=== PATIENT | male | born 1990 ===

== ENCOUNTER 2021-10-21 22:57 | Emergency (ER) | payer SELFPAY ==
[2021-10-22 01:35] LABS: Absolute Lymphocytes (CBC) 1.6 K/uL (0.7-4.9); Hematocrit 41.9 % (39.6-49.0); Lymphocytes % 19.1 % (15.3-44.8); MPV 8.1 fL (7.6-11.3); RBC Red Blood Cell Count 4.42 M/uL (4.33-5.43)
[2021-10-22 01:40] LABS: Protime INR 1.14
[2021-10-22 02:00] LABS: Bilirubin Direct 0.2 mg/dL (0-0.2); Bilirubin Total 0.6 mg/dL (0.2-1.0); Magnesium 2.2 mg/dL (1.8-2.4); Potassium 3.6 mmol/L (3.5-5.1); Protein, Total 7.2 g/dL (6.4-8.2); Troponin High Sensitivity 5.7 pg/mL (<58.9)
[2021-10-22] MEDS ORDERED: NA CHLORIDE 0.9% 1,000 ML ONE (03:21)
--- NOTE | 2021-10-22 06:13 | EDPHYS ---
Physician Documentation [facility] Name: Emir Fernandez Age: 31 yrs Sex: Male : 1990 Arrival Date: 10/21/2021 Time: 23:03 Bed 3 Private MD: ED Physician Ashkan Ulloa HPI: 10/22 01:15 This 31 yrs old Male presents to ER via Ambulatory with complaints of Cough, Vomiting, mh7 - Blood, Back Pain, Chest Pain, Abdominal Pain. 01:15 The patient presents to the emergency department with nausea, that is moderate, mh7 vomiting, that is intermittent, described as blood streaked, clear fluid, One episode with blood , abdominal pain, of the epigastric area, described as intermittent, vague,\\E\\ waxing and waning, and does not radiate. Onset: The symptoms/episode began/occurred 1 week(s) ago. Possible causes: unknown. The symptoms are aggravated by nothing. The symptoms are alleviated by nothing. Associated signs and symptoms: Pertinent positives: cough, chest pain, Pertinent negatives: anorexia, belching, constipation, diarrhea, dysuria, fever, flatulence, hematuria. Severity of symptoms: At their worst the symptoms were moderate yesterday, in the emergency department the symptoms have improved moderately. Historical: - Allergies: 10/21 23:39 PENICILLINS; jb4 - Home Meds: 23:39 None [Active]; jb4 - PMHx: 23:39 adhd; jb4 - PSHx: 23:39 None; jb4 - Immunization history:: Adult Immunizations not up to date. - Social history:: Smoking status: Patient denies any tobacco usage or history of. ROS: 10/22 01:15 Constitutional: Negative for fever, chills, and weight loss, Eyes: Negative for injury, mh7 pain, redness, and discharge, ENT: Negative for injury, pain, and discharge, Neck: Negative for injury, pain, and swelling, Back: Negative for injury and pain, : Negative for injury, bleeding, discharge, and swelling, MS/Extremity: Negative for injury and deformity, Skin: Negative for injury, rash, and discoloration, Neuro: Negative for headache, weakness, numbness, tingling, and seizure, Psych: Negative for depression, anxiety, suicide ideation, homicidal ideation, and hallucinations, Allergy/Immunology: Negative for hives, rash, and allergies, Endocrine: Negative for neck swelling, polydipsia, polyuria, polyphagia, and marked weight changes, Hematologic/Lymphatic: Negative for swollen nodes, abnormal bleeding, and unusual bruising. Exam: 01:15 Constitutional: This is a well developed, well nourished patient who is awake, alert, mh7 and in no acute distress. Head/Face: Normocephalic, atraumatic. Eyes: Pupils equal round and reactive to light, extra-ocular motions intact. Lids and lashes normal. Conjunctiva and sclera are non-icteric and not injected. Cornea within normal limits. Periorbital areas with no swelling, redness, or edema. Neck: Trachea midline, no thyromegaly or masses palpated, and no cervical lymphadenopathy. Supple, full range of motion without nuchal rigidity, or vertebral point tenderness. No Meningismus. Chest/axilla: Normal chest wall appearance and motion. Nontender with no deformity. No lesions are appreciated. Cardiovascular: Regular rate and rhythm with a normal S1 and S2. No gallops, murmurs, or rubs. Normal PMI, no JVD. No pulse deficits. Respiratory: Lungs have equal breath sounds bilaterally, clear to auscultation and percussion. No rales, rhonchi or wheezes noted. No increased work of breathing, no retractions or nasal flaring. Back: No spinal tenderness. No costovertebral tenderness. Full range of motion. Skin: Warm, dry with normal turgor. Normal color with no rashes, no lesions, and no evidence of cellulitis. MS/ Extremity: Pulses equal, no cyanosis. Neurovascular intact. Full, normal range of motion. Neuro: Awake and alert, GCS 15, oriented to person, place, time, and situation. Cranial nerves II-XII grossly intact. Motor strength 5/5 in all extremities. Sensory grossly intact. Cerebellar exam normal. Normal gait. Psych: Awake, alert, with orientation to person, place and time. Behavior, mood, and affect are within normal limits. 01:15 Abdomen/GI: Inspection: abdomen appears normal, Bowel sounds: normal, in all quadrants, Palpation: moderate abdominal tenderness, in the epigastric area, mass, is not appreciated, rebound tenderness, is not appreciated, voluntary guarding, is not appreciated, involuntary guarding, is not appreciated, no appreciated organomegaly, Rectal exam: the exam is deferred, because of patient request, Indicators: McBurney's point is not tender, Ramos's sign is negative, Rovsing's sign is negative, Obturator sign is negative, Psoas sign is negative, Liver: no appreciated palpable abnormalities, Hernia: not appreciated. Vital Signs: 10/21 23:37 BP 130 / 80; Pulse 70; Resp 16; Temp 98.0(TE); Pulse Ox 95% on R/A; Weight 72.12 kg jb4 (R); Height 5 ft. 9 in. (175.26 cm) (R); 10/22 03:10 BP 108 / 68; Pulse 63; Resp 16; Pulse Ox 97% on R/A; sm5 05:17 BP 113 / 67; Pulse 64; Resp 15; Pulse Ox 100% ; 5 06:27 BP 109 / 69; Pulse 56; Resp 17; Pulse Ox 97% on R/A; 5 10/21 23:37 Body Mass Index 23.48 (72.12 kg, 175.26 cm) jb4 MDM: 06:09 Differential diagnosis: Nonspecific abd pain, gastritis, cholecystitis, pancreatitis, mh7 viral gastroenteritis. Data reviewed: vital signs, nurses notes, lab test result(s), amylase and lipase, CBC, electrolytes, urinalysis, radiologic studies, CT scan. Data interpreted: Pulse oximetry: on room air is 100 %. Interpretation: normal. Counseling: I had a detailed discussion with the patient and/or guardian regarding: the historical points, exam findings, and any diagnostic results supporting the discharge/admit diagnosis, lab results, radiology results, the need for outpatient follow up, a tank charger, to return to the emergency department if symptoms worsen or persist or if there are any questions or concerns that arise at home. Response to treatment: the patient's symptoms have resolved after treatment, the patient's blood pressure is in an acceptable range, mental status has returned to baseline, the patient no longer shows bradycardia, the patient is not short of breath, the patient is not tachycardic, the patient's pain is gone, the patient's temperature has normalized, the patient is now symptom free, patient is well hydrated. 06:12 Patient medically screened. [facility] 10/22 01:00 Order name: Basic Metabolic Panel; Complete Time: 03:01 [facility] 10/22 01:00 Order name: CBC with Diff; Complete Time: 03:01 [facility] 10/22 01:00 Order name: LFT's; Complete Time: 03:01 [facility] 10/22 01:00 Order name: Magnesium; Complete Time: 03:01 [facility] 10/22 01:00 Order name: NT PRO-BNP; Complete Time: 03:01 [facility] 10/22 01:00 Order name: PT-INR; Complete Time: 03:01 [facility] 10/22 01:00 Order name: Troponin HS; Complete Time: 03:01 [facility] 10/22 01:00 Order name: XRAY Chest (1 view) [facility] 10/22 01:00 Order name: Lipase; Complete Time: 03:01 [facility] 10/22 01:02 Order name: COVID-19 SARS RT PCR (Document "Date of Onset" if Symptomatic); Complete [facility] Time: 03:10/22 03:03 Order name: CT Abd/Pelvis - IV Contrast Only [facility] 10/22 01:00 Order name: EKG; Complete Time: 01:00 [facility] 10/22 01:00 Order name: Cardiac monitoring; Complete Time: 02:52 [facility] 10/22 01:00 Order name: EKG - Nurse/Tech; Complete Time: 02:52 [facility] 10/22 01:00 Order name: IV Saline Lock; Complete Time: 01:25 [facility] 10/22 01:00 Order name: Labs collected and sent; Complete Time: 01:25 [facility] 10/22 01:00 Order name: O2 Per Protocol; Complete Time: 01:30 [facility] 10/22 01:00 Order name: O2 Sat Monitoring; Complete Time: 01:30 [facility] Administered Medications: 03:17 Not Given (Patient Refused): ProTONIX (pantoprazole) 40 mg IVP once sm5 03:17 Not Given (Patient Refused): Phenergan (promethazine) 12.5 mg IVP once sm5 03:20 Drug: NS 0.9% 1000 ml Route: IV; Rate: 1000 ml; Site: right antecubital; sm5 06:28 Follow up: IV Status: Completed infusion; IV Intake: 1000ml sm5 Disposition Summary: 10/22/21 06:12 Discharge Ordered Location: Home [facility] Problem: new [facility] Symptoms: have improved mh Condition: Stable [facility] Diagnosis - Upper abdominal pain, unspecified 7 - Nausea with vomiting, unspecified mh7 Followup: [facility] - With: Private Physician - When: 1 - 2 days - Reason: Worsening of condition, Recheck today's complaints, Continuance of care, Re-evaluation by your physician Followup: [facility] - With: Vahid Chaudhari MD - When: 1 - 2 days - Reason: Worsening of condition, Recheck today's complaints Discharge Instructions: - Discharge Summary Sheet [facility] - Nausea and Vomiting, Adult 7 - Abdominal Pain, Adult, [id number] [facility] Forms: - Medication Reconciliation Form [facility] - Thank You Letter [facility] - Antibiotic Education [facility] - Prescription Opioid Use [facility] - Work release form sm5 Prescriptions: - ondansetron 4 mg Oral tablet,disintegrating - place 1 tablet by TRANSLINGUAL route every 8 hours As needed; 10 tablet; 7 Refills: 0, Product Selection Permitted - Protonix 40 mg Oral tablet,delayed release (DR/EC) - take 1 tablet by ORAL route once daily; 15 tablet; Refills: 0, Product [facility] Selection Permitted - dicyclomine 20 mg Oral Tablet - take 1 tablet by ORAL route 4 times per day As needed; 20 tablet; Refills: 0, [facility] Product Selection Permitted Signatures: Dispatcher [employer] Jalen Agee, RN RN jb4 Ashkan Ulloa MD MD mh7 Iesha Rodriguez RN RN sm5
--- NOTE | 2021-10-22 06:13 | ER ---
Nurse's Notes [facility] Name: Emir Fernandez Age: 31 yrs Sex: Male : 1990 Arrival Date: 10/21/2021 Time: 23:03 Bed 3 Private MD: Diagnosis: Upper abdominal pain, unspecified;Nausea with vomiting, unspecified Presentation: 10/21 23:37 Chief complaint: Patient states: I was at work and I vomited and blood came out. I jb4 started having chest pain and back pain right after. I have been sick for the past 3 days, I did a home covid test and it was negative. Coronavirus screen: Client presents with at least one sign or symptom that may indicate coronavirus-19. Provider contacted for isolation considerations. The client reports previous COVID testing was negative. Ebola Screen: No symptoms or risks identified at this time. Initial Sepsis Screen: Does the patient meet any 2 criteria? No. Patient's initial sepsis screen is negative. Does the patient have a suspected source of infection? No. Patient's initial sepsis screen is negative. Risk Assessment: Do you want to hurt yourself or someone else? Patient reports no desire to harm self or others. Onset of symptoms was October 18, 2021. Transition of care: patient was not received from another setting of care. 23:37 Method Of Arrival: Ambulatory [facility] 23:37 Acuity: AMA 3 jb4 Triage Assessment: 10/22 01:00 GI: Reports vomiting. sm5 01:00 General: Appears in no apparent distress. Behavior is cooperative. sm5 Historical: - Allergies: 10/21 23:39 PENICILLINS; jb4 - Home Meds: 23:39 None [Active]; jb4 - PMHx: 23:39 adhd; jb4 - PSHx: 23:39 None; jb4 - Immunization history:: Adult Immunizations not up to date. - Social history:: Smoking status: Patient denies any tobacco usage or history of. Screenin/12 03:10 Abuse screen: Denies threats or abuse. Denies injuries from another. Nutritional sm5 screening: No deficits noted. Tuberculosis screening: No symptoms or risk factors identified. Fall Risk None identified. Assessment: 02:45 General: Appears in no apparent distress. Behavior is cooperative. Pain: Denies pain. sm5 Neuro: Daniels Agitation-Sedation Scale (RASS): 0 - Alert and Calm Level of Consciousness is awake, alert, obeys commands, Oriented to person, place, time, situation. Cardiovascular: No deficits noted. Capillary refill < 3 seconds Patient's skin is warm and dry. Respiratory: No deficits noted. Airway is patent Trachea midline Respiratory effort is even, unlabored. GI: Abdomen is flat, non-distended. 03:50 Reassessment: No changes from previously documented assessment. Patient and/or family [facility] updated on plan of care and expected duration. Pain level reassessed. 04:55 Reassessment: No changes from previously documented assessment. Patient is alert, 5 oriented x 3, equal unlabored respirations, skin warm/dry/pink. 06:27 Reassessment: No changes from previously documented assessment. 5 Vital Signs: 10/21 23:37 BP 130 / 80; Pulse 70; Resp 16; Temp 98.0(TE); Pulse Ox 95% on R/A; Weight 72.12 kg jb4 (R); Height 5 ft. 9 in. (175.26 cm) (R); 10/22 03:10 BP 108 / 68; Pulse 63; Resp 16; Pulse Ox 97% on R/A; sm5 05:17 BP 113 / 67; Pulse 64; Resp 15; Pulse Ox 100% ; sm5 06:27 BP 109 / 69; Pulse 56; Resp 17; Pulse Ox 97% on R/A; sm5 11 23:37 Body Mass Index 23.48 (72.12 kg, 175.26 cm) jb4 ED Course: 10/21 23:03 Patient arrived in ED. bp1 23:39 Triage completed. jb4 23:39 Arm band placed on right wrist. jb4 23:56 Iesha Rodriguez, ELIDA is Primary Nurse. sm5 23:58 Ashkan Ulloa MD is Attending Physician. [facility] 10/22 01:25 Inserted saline lock: 22 gauge in right antecubital area, using aseptic technique. ll3 Blood collected. 01:40 XRAY Chest (1 view) In Process Unspecified. EDMS 03:10 Patient has correct armband on for positive identification. Bed in low position. Call [facility] light in reach. Side rails up X2. 04:00 CT Abd/Pelvis - IV Contrast Only In Process Unspecified. EDMS 05:19 No provider procedures requiring assistance completed. sm5 06:11 Vahid Chaudhari MD is Referral Physician. [facility] 06:27 IV discontinued, intact, bleeding controlled, No redness/swelling at site. Pressure sm5 dressing applied. Administered Medications: 03:17 Not Given (Patient Refused): ProTONIX (pantoprazole) 40 mg IVP once sm5 03:17 Not Given (Patient Refused): Phenergan (promethazine) 12.5 mg IVP once sm5 03:20 Drug: NS 0.9% 1000 ml Route: IV; Rate: 1000 ml; Site: right antecubital; sm5 06:28 Follow up: IV Status: Completed infusion; IV Intake: 1000ml 5 Medication: 05:19 VIS not applicable for this client. sm5 Intake: 06:28 IV: 1000ml; Total: 1000ml. sm5 Outcome: 06:12 Discharge ordered by . [facility] 06:27 Discharged to home ambulatory. 5 06:27 Condition: stable 06:27 Discharge instructions given to patient, Instructed on discharge instructions, follow up and referral plans. medication usage, Demonstrated understanding of instructions, follow-up care, medications, Prescriptions given X 3. 06:28 Patient left the ED. 5 Signatures: Dispatcher [employer] EDMS Jalen Prabhakar, RN RN jb4 Sasha Borrego Maurice, MD MD 7 Clarence Matthews RN RN ll3 Iesha Rodriguez RN RN sm5
[2021-10-22 06:48] VITALS: TEMP 98
[2021-10-22 06:53] VITALS: BP 109/69; O2SAT 97
--- NOTE | 2021-10-23 13:19 | RAD REPORT ---
EXAM DESCRIPTION: CT - Abdomen Pelvis W Contrast - 10/22/2021 6:32 am CLINICAL HISTORY: The patient is 31 years years old, Male; Abdominal pain, acute, nonlocalized TECHNIQUE: Axial computed tomography images of the abdomen with intravenous contrast. Sagittal and coronal reformatted images were created and reviewed. This CT exam was performed using one or more of the following dose reduction techniques: automated exposure control, adjustment of the mA and/o r kV according to patient size, and/or use of iterative reconstruction technique. COMPARISON: No relevant prior studies available. FINDINGS: LUNG BASES: The visualized lung bases show no evidence of mass, pulmonary nodules or gr oss consolidation. PLEURAL SPACE: There is no evidence of pleural effusions or pneumothoraces. ABDOMEN: LIVER: Unremarkable. The liver is normal in size and configuration. There are no significant foc al defects. There is no evidence of biliary ductal dilatation. GALLBLADDER AND BILE DUCTS: Unremarkable. There is no evidence of calculi or pericholecystic infla mmatory changes. There is no biliary ductal dilatation. PANCREAS: Unremarkable. No ductal dilatation, inflammatory changes or mass. SPLEEN: Unremarkable. No splenomegaly or focal defects. ADRENALS: Unremarkable. No mass or calcification. KIDNEYS AND URETERS: There are no acute findings in the kidneys. There is no evidence of solid mas s, hydronephrosis or radiopaque nonobstructive intrarenal calculi. There is focal cortical scarring i n the upper pole of the left kidney STOMACH AND BOWEL: The stomach, small bowel, colon and rectum are unremarkable, allowing for areas of peristalsis, i.e decompression. No evidence of intestinal obstruction or acute inflammatory ruth nges. PELVIS: APPENDIX: The appendix is present and appears normal. BLADDER: Unremarkable, allowing for the degree of distention. There is no evidence of cystolithias is or bladder mass. REPRODUCTIVE: The prostate and seminal vesicles are unremarkable. ABDOMEN and PELVIS: INTRAPERITONEAL SPACE: There is no evidence of free air or free fluid. BONES/JOINTS: There is no evidence of acute fracture, osseous destruction or osteoblastic changes. SOFT TISSUES: There is a small fat-containing right inguinal hernia. VASCULATURE: Unremarkable. No abdominal aortic aneurysm. LYMPH NODES: Unremarkable. There is no evidence of mesenteric, retroperitoneal, pelvic or ingui nal adenopathy. IMPRESSION: No acute findings in the abdomen or pelvis. Electronically signed by: Lita Flores MD 10/22/2021 6:01 AM CDT Due to temporary technical issues with the PACS/Fluency reporting system, reports are being signed by the in house radiologist without review as a courtesy to ensure prompt reporting. The interpreting r adiologist is fully responsible for the content of the report.
--- NOTE | 2021-10-23 13:21 | RAD REPORT ---
EXAM DESCRIPTION: RAD - Chest Single View - 10/22/2021 1:38 am CLINICAL HISTORY: 31 years, Male, COUGH COMPARISON: None. FINDINGS: Single view of the chest was obtained portable. No prior films are available for compariso n. The cardiomediastinal silhouette demonstrate to be unremarkable. The heart is not enlarged. The thoracic aorta is unremarkable. The pulmonary vasculature is normal distribution. Costophrenic angles are sharp. No areas of consolidation or masses are seen. The rest of the soft tissue and bony st ructures demonstrate to be unremarkable. IMPRESSION: No acute cardiopulmonary process identified. Electronically signed by: Kun Gage MD 10/22/2021 1:44 AM CDT Due to temporary technical issues with the PACS/Fluency reporting system, reports are being signed by the in house radiologist without review as a courtesy to ensure prompt reporting. The interpreting r adiologist is fully responsible for the content of the report.
--- NOTE | 2021-10-23 13:36 | EKG ---
Test Date: 2021-10-22 Test Time: 02:40:56 Delivery Professional: PERRY MEASUREMENT RESULTS: Intervals: Rate: 53 CO: 178 QRSD: 110 QT: 396 QTc: 371 Carson: P: 43 CO: 178 QRS: 62 T: 53 INTERPRETIVE STATEMENTS: Sinus bradycardia with marked sinus arrhythmia Otherwise normal ECG No previous ECG available for comparison Electronically Signed On 10-23-21 13:34:14 CDT by Joesph Espino
== END 2021-10-22 06:28 | disposition home or self-care (01) ==
LOC: ER 22:57
DX: R11.2 Nausea with vomiting, unspecified (principal); R10.13 Epigastric pain; Z20.822 Contact with and (suspected) exposure to COVID-19; Z88.0 Allergy status to penicillin
CPT/HCPCS: 36415; 71045; 74177; 80048; 80076; 83690; 83735; 83880; 84484; 85025; 85610; 93005; 96360; 96361; 99284; J7030; Q9967; U0003